=== PATIENT | male | born 1940 | race Two or more races ===

== ENCOUNTER 2019-08-11 05:28 | Day surgery (SDC) | payer MEDICARE, MEDICAID ==
[~2019-08-11] VITALS: Ht 172.7 cm; Wt 83.9 kg
[2019-08-11] VITALS (10 sets, daily range): BP systolic 102–147; BP diastolic 58–78
[2019-08-11] MEDS ORDERED: ceFAZolin sod 1 GM in NS 55 ML IVPB ONE (05:30)
[2019-08-11] MEDS ORDERED: BP MED PO (06:10)
[2019-08-11] MEDS ORDERED: ALLOPURINOL100 M1 ORAL (06:10)
[2019-08-11] MEDS ORDERED: [UNRECOGNIZED DRUG - OTHER] PO (06:10)
[2019-08-11] MEDS ORDERED: CRESTOR10 M2 ORAL (06:10)
[2019-08-11] MEDS ORDERED: METFORMIN HCL500 M1 ORAL (06:10)
[2019-08-11 06:30] LABS: BASOPHILS % (AUTO) 1.4 % (0.0-2.0); EOSINOPHILS % (AUTO) 4.5 % (0.0-3.0); HEMATOCRIT 34.7 % (42.0-52.0); HEMOGLOBIN 12.2 G/DL (14.2-18.0); MEAN CORPUSCULAR VOLUME 92 FL (80-99); MONOCYTES % (AUTO) 7.8 % (1.0-10.0); NEUTROPHILS % (AUTO) 56.4 % (45.0-75.0); PLATELET COUNT 164 K/UL (150-450); RED BLOOD COUNT 3.78 M/UL (4.70-6.10); RED CELL DISTRIBUTION WIDTH 11.9 % (11.6-14.8); WHITE BLOOD COUNT 7.8 K/UL (4.8-10.8)
[2019-08-11 06:31] LABS: ANION GAP 13 mmol/L (5-15); BLOOD UREA NITROGEN 22 mg/dL (7-18); CALCIUM 9.3 MG/DL (8.5-10.1); CARBON DIOXIDE 24 MMOL/L (21-32); CHLORIDE 106 MMOL/L (98-107); POTASSIUM 4.2 MMOL/L (3.5-5.1); SODIUM 142 MMOL/L (136-145)
[2019-08-11] MEDS ORDERED: LR 1000ml 1,000 ML IVLG SCH (06:42)
[2019-08-11] MEDS ORDERED: Acetaminophen (Non formulary) 100 ML IV ONE (06:45)
[2019-08-11] MEDS ORDERED: Meperidine 25mg/0.5ml Inj (FOR RIGORS ONLY) IV PRN (06:45)
[2019-08-11] MEDS ORDERED: oxyCODONE HCL/Acetaminophen 5/325mg ORAL PRN (06:45)
[2019-08-11] MEDS ORDERED: HYDROcodone/Acetamin 7.5/325 tab ORAL PRN (06:45)
[2019-08-11] MEDS ORDERED: Hydromorphone 0.5mg/0.5ml inj IVP PRN (06:45)
[2019-08-11] MEDS ORDERED: LORazepam Inj 2mg/ml 1ml IV PRN (06:45)
[2019-08-11] MEDS ORDERED: fentaNYL 100 mcg/2 mL IV PRN (06:45)
[2019-08-11] MEDS ORDERED: Ketorolac 30mg Inj IV PRN ×2 (06:45)
[2019-08-11] MEDS ORDERED: Metoclopramide 10mg/2ml Inj IVP PRN (06:45)
[2019-08-11] MEDS ORDERED: DiphenhydrAMINE 50mg/ml Inj IVP PRN (06:45)
[2019-08-11] MEDS ORDERED: HYDROcodone/Acetamin 5/325 tab ORAL PRN (06:45)
[2019-08-11] MEDS ORDERED: Atropine Sulfate 0.4mg/ml inj IVP PRN (06:45)
[2019-08-11] MEDS ORDERED: Midazolam 2mg/2ml Inj IVP PRN (06:45)
[2019-08-11] MEDS ORDERED: Labetalol 5mg/ml 20ml vial IV PRN (06:45)
--- NOTE | 2019-08-11 06:48 | Anethesia Preoperative Eval ---
Anesthesia Pre-op PMH/ROS General Date of Evaluation: Aug 11, 2019 Time of Evaluation: 07:19 Anesthesiologist: Cali ASA Score: ASA 3 Mallampati Score Class I : Soft palate, uvula, fauces, pillars visible Class II: Soft palate, uvula, fauces visible Class III: Soft palate, base of uvula visible Class IV: Only hard plate visible Mallampati Classification: Class II Surgeon: Sridhar Diagnosis: L Kidney Pain Surgical Procedure: L ESWL Anesthesia History: none Family History: no anesthesia problems Allergies: Coded Allergies: No Known Allergies (Unverified , 08/11/19) Medications: see eMAR Patient NPO?: Yes Past Medical History Cardiovascular: Reports: HTN, other - HL Gastrointestinal/Genitourinary: Reports: other - BPH, Prostate CA, Fatty Liver Endocrine: Reports: DM HEENT: Reports: cataract (L), cataract (R) Hematology/Immune: Reports: anemia Musculoskeletal/Integumentary: Reports: OA Anesthesia Pre-op Phys. Exam Physician Exam Last Vital Signs Date Time Temp Pulse Resp B/P (MAP) Pulse Ox O2 Delivery O2 Flow Rate FiO2 08/11/19 06:10 Room Air 08/11/19 06:00 97.0 64 18 147/78 98 Constitutional: NAD Neurologic: CN 2-12 intact Cardiovascular: RRR Respiratory: CTA Gastrointestinal: S/NT/ND Airway Exam Mallampati Score: Class II MO: full ROM: limited Teeth: missing Anesthesia Pre-op A/P Labs Hematology Test 08/11/19 05:55 White Blood Count 7.8 K/UL (4.8-10.8) Red Blood Count 3.78 M/UL (4.70-6.10) L Hemoglobin 12.2 G/DL (14.2-18.0) L Hematocrit 34.7 % (42.0-52.0) L Mean Corpuscular Volume 92 FL (80-99) Mean Corpuscular Hemoglobin 32.3 PG (27.0-31.0) H Mean Corpuscular Hemoglobin Concent 35.1 G/DL (32.0-36.0) Red Cell Distribution Width 11.9 % (11.6-14.8) Platelet Count 164 K/UL (150-450) Mean Platelet Volume 8.3 FL (6.5-10.1) Neutrophils (%) (Auto) 56.4 % (45.0-75.0) Lymphocytes (%) (Auto) 30.0 % (20.0-45.0) Monocytes (%) (Auto) 7.8 % (1.0-10.0) Eosinophils (%) (Auto) 4.5 % (0.0-3.0) H Basophils (%) (Auto) 1.4 % (0.0-2.0) Coagulation Test 08/11/19 05:55 Prothrombin Time 10.2 SEC (9.30-11.50) Prothromb Time International Ratio 1.0 (0.9-1.1) Activated Partial Thromboplast Time 29 SEC (23-33) Chemistry Test 08/11/19 05:55 Sodium Level 142 MMOL/L (136-145) Potassium Level 4.2 MMOL/L (3.5-5.1) Chloride Level 106 MMOL/L (98-107) Carbon Dioxide Level 24 MMOL/L (21-32) Anion Gap 13 mmol/L (5-15) Blood Urea Nitrogen 22 mg/dL (7-18) H Creatinine 1.0 MG/DL (0.55-1.30) Estimat Glomerular Filtration Rate > 60 mL/min (>60) Glucose Level 113 MG/DL (74-106) H Calcium Level 9.3 MG/DL (8.5-10.1) Risk Assessment & Plan Assessment: ASA 3 Plan: GA, SED Status Change Before Surgery: No Pre-Antibiotics Drug: ! Gram Ancef IV Given Within 1 Hr of Incision: Yes Time Given: 07:46 Santos Jerome MD Aug 11, 2019 06:48
--- NOTE | 2019-08-11 06:49 | Immediate Post-Op Evaluation ---
Immediate Post-Op Evalulation Immediate Post-Op Evalulation Procedure: L ESWL Date of Evaluation: Aug 11, 2019 Time of Evaluation: 09:04 IV Fluids: 800 LR Blood Products: 0 Estimated Blood Loss: 2 Urinary Output: 0 Blood Pressure Systolic: 126 Blood Pressure Diastolic: 67 Pulse Rate: 54 Respiratory Rate: 16 O2 Sat by Pulse Oximetry: 100 Temperature (Fahrenheit): 98.2 Pain Score (1-10): 2 Nausea: No Vomiting: No Complications 0 Patient Status: awake, reacts, patent, none Hydration Status: adequate Dru Gram Ancef IV Given Within 1 Hr of Incision: Yes Time Given: 07:46 Santos Jerome MD Aug 11, 2019 06:49
--- NOTE | 2019-08-11 06:50 | 48 Hour Post Anesthesia Eval ---
Post Anesthesia Evaluation Procedure: L ESWL Date of Evaluation: Aug 11, 2019 Time of Evaluation: 11:12 Blood Pressure Systolic: 132 0: 67 Pulse Rate: 61 Respiratory Rate: 18 Temperature (Fahrenheit): 98.4 O2 Sat by Pulse Oximetry: 100 Airway: patent Nausea: No Vomiting: No Pain Intensity: 2 Hydration Status: adequate Cardiopulmonary Status: Stable Mental Status/LOC: patient returned to baseline Follow-up Care/Observations: 0 Post-Anesthesia Complications: 0 Follow-up care needed: ready to discharge Santos Jerome MD Aug 11, 2019 06:50
[2019-08-11] MEDS ORDERED: LR 1000ml ONE (07:00)
[2019-08-11] MEDS ORDERED: Propofol 200mg/20ml IV ONE (07:03)
[2019-08-11] MEDS ORDERED: Lidocaine 1% MPF 10mg/ml 5ml ONE (07:03)
[2019-08-11] MEDS ORDERED: Sodium Chloride 10ml vial INJ ONE (07:03)
[2019-08-11] MEDS ORDERED: Midazolam 2mg/2ml Inj ONE (07:05)
[2019-08-11] MEDS ORDERED: fentaNYL 100 mcg/2 mL IV ONE (07:05)
[2019-08-11] MEDS ORDERED: Ketamine 500mg/10ml vial ONE (07:16)
--- NOTE | 2019-08-11 07:41 | Pre-Procedure Note/Attestation ---
Pre-Procedure Note/Attestation Complete Prior to Procedure Planned Procedure: left Procedure Narrative: ESWL Indications for Procedure Pre-Operative Diagnosis: left renal calculus Attestation I attest that I discussed the nature of the procedure; its benefits; risks and complications; and alternatives (and the risks and benefits of such alternatives ), prior to the procedure, with the patient (or the patient's legal business banking representative). I attest that, if there was a reasonable possibility of needing a blood transfusion, the patient (or the patient's legal business banking representative) was given the [facility] standardized written summary, pursuant to the [place] Blood Safety Act ([place] Health and Safety Code # 1645, as amended). I attest that I re-evaluated the patient just prior to the surgery and that there has been no change in the patient's H&P, except as documented below: Kiko Waller MD Aug 11, 2019 07:41
--- NOTE | 2019-08-11 08:37 | Brief Operative Note ---
Immediate Post Operative Note Operative Note Pre-op Diagnosis: left renal calculus Procedure: left ESWL Post-op Diagnosis: same as pre-op Surgeon: terri Anesthesiologist: esteban Anesthesia: general Specimen: none Complications: none Condition: stable Fluids: NS Estimated Blood Loss: minimal Implant(s) used?: No Kiko Waller MD Aug 11, 2019 08:37
--- NOTE | 2019-08-11 11:14 | Operative Note - Dictated ---
DATE OF OPERATION: 08/11/2019 PREOPERATIVE DIAGNOSIS: Left renal calculus. POSTOPERATIVE DIAGNOSIS: Left renal calculus. PROCEDURE PERFORMED: Left extracorporeal shock wave lithotripsy. OPERATING SURGEON: Kiko Waller M.D. ANESTHESIOLOGIST: Santos Jerome M.D. ANESTHESIA: General. INDICATION FOR PROCEDURE: This is a pleasant 79-year-old male. He has a history of BPH, prostate cancer. He also has a history of left nephrolithiasis, 9 mm. The management options for the stone were discussed with the patient including observation versus surgical treatment with ureteroscopy with laser as wall and pros and cons were discussed and the patient wanted to proceed with as well. Possible risks and complication of bleeding, infection, anesthesia, damage to the kidney, need for further surgeries, etc. were discussed. No guarantees were given or implied. FINDINGS: The patient had a stone in the left kidney, which was visualized on as well was treated and appeared to fragment as well. PROCEDURE IN DETAIL: Informed consent was obtained for the patient. The patient was brought to the operative room and then placed in supine position. After successful general anesthesia was induced, the patient was placed in the supine position. His genital area was then prepped and draped in usual sterile fashion. General anesthesia was induced. At this time, time-out was performed. Preoperative IV antibiotics were administered and then using the [employer] Delta III machine, we were able to identify the stone under fluoroscopy and the stone was visualized over the focal point of the shockwave generator. Shockwaves were delivered to the stone and the power was slowly increased to about 7 and the stone was intermittently visualized with fluoroscopy and appeared to fragment. Total of 2500 shock rays were delivered after which the patient was awakened and was taken to the recovery room in stable condition. Blood loss was minimal. No complications. Kiko Waller M.D. DR: KEESHA JOB#: [id number] CC:
== END 2019-08-11 10:30 | disposition home or self-care (01) ==
LOC: SUR 05:28
DX: N20.0 Calculus of kidney (principal); I10 Essential (primary) hypertension; Z85.46 Personal history of malignant neoplasm of prostate; E11.9 Type 2 diabetes mellitus without complications; M19.90 Unspecified osteoarthritis, unspecified site
CPT/HCPCS: 36415; 50590; 80048; 85025; 85610; 85730; J0131; J0690; J1940; J2250; J2405; J2704; J3010; J3490; J7120; 94003; 94150